=== PATIENT | female | born 1935 | race African-American/Black ===

== ENCOUNTER 2023-01-20 12:19 | Emergency (ER) | payer OTHER ==
[~2023-01-20] VITALS: Ht 162.6 cm; Wt 91.0 kg
[2023-01-20 16:06] VITALS: BP 137/60
== END 2023-01-20 16:27 | disposition home or self-care (01) ==
LOC: ER 12:19
DX: M25.512 Pain in left shoulder (principal); R51.9 Headache, unspecified; I10 Essential (primary) hypertension; W18.30XA Fall on same level, unspecified, initial encounter; Y93.89 Activity, other specified; Y92.89 Other specified places as the place of occurrence of the external cause; Y99.8 Other external cause status
CPT/HCPCS: 71045; 73030; 73070; 73080; 73502; 73562; 99284; A4565